=== PATIENT | female | born 1980 | race Hispanic/Latino ===

== ENCOUNTER 2017-06-02 12:23 | Emergency (ER) | payer SELFPAY | END 2017-06-02 14:33 | disposition home or self-care (01) | LOC: ERS 12:23 | DX: K03.81 Cracked tooth (principal); D64.9 Anemia, unspecified; F32.9 Major depressive disorder, single episode, unspecified; F41.9 Anxiety disorder, unspecified; F17.210 Nicotine dependence, cigarettes, uncomplicated; J45.909 Unspecified asthma, uncomplicated; Z71.6 Tobacco abuse counseling | CPT/HCPCS: 99406 ==

== ENCOUNTER 2019-08-21 00:05 | Emergency (ER) | payer SELFPAY ==
[2019-08-21] MEDS ORDERED: Acetaminophen 500 MG TAB ONE (00:22)
[2019-08-21] MEDS ORDERED: Ondansetron ODT 4 MG TAB ONE (00:22)
[2019-08-21 00:41] LABS: #Basophils 0.1 thou/uL (0.0-0.2); #Eosinphils 0.7 thou/uL (0.0-0.7); #Lymphocytes 4.5 thou/uL (1.20-3.40); #Monocytes 0.5 thou/uL (0.11-0.59); #Neutrophils 5.1 thou/uL (1.40-6.50); %Eosinophils 6.8 % (0.0-10.0); %Lymphocytes 40.7 % (21.0-51.0); %Monocytes 4.9 % (0.0-10.0); %Neutrophils 46.6 % (42.0-75.0); Hemoglobin 12.7 g/dL (12.0-16.0); Mean Corpuscular HGB CONC 35.8 g/dL (32.0-36.0); Mean Corpuscular Hemoglobin 34.8 pg (27.0-31.0); Mean Corpuscular Volume 97.3 fL (78.0-98.0); Mean Platelet Volume 7.1 fL (7.4-10.4); Platelet Count 349 thou/uL (130-400); RBC Distribution Width 11.4 % (11.5-14.5); Red Blood Cell (RBC) Count 3.64 mill/uL (4.20-5.40); White Blood Cell (WBC) Count 10.9 thou/uL (4.8-10.8)
[2019-08-21 01:02] LABS: ALT (SGPT) 22 U/L (8-55); AST (SGOT) 18 U/L (5-34); Albumin 4.1 g/dL (3.5-5.0); Alkaline Phosphatase 76 U/L (40-110); Anion Gap 10 mmol/L (10-20); BUN (Urea Nitrogen) 9 mg/dL (7.0-18.7); Bilirubin, Total 0.2 mg/dL (0.2-1.2); Calc. Creatinine Clearance 0 mL/min (70-130); Calcium 9.1 mg/dL (7.8-10.44); Carbon Dioxide 27 mmol/L (22-29); Chloride 105 mmol/L (98-107); Estimated GFR-MDRD 76; Globulin 3.6 g/dL (2.4-3.5); Glucose 127 mg/dL (70-105); Lipase 27 U/L (8-78); Potassium 3.5 mmol/L (3.5-5.1); Protein, Total 7.7 g/dL (6.0-8.3); Sodium 138 mmol/L (136-145)
[2019-08-21 01:12] LABS: Bilirubin Negative (Negative); Blood, Urine Negative (Negative); Clarity Clear (Clear); Glucose, Urine (Dipstick) Normal (Negative); Leukocyte Negative Leu/uL (Negative); Nitrite Negative (Negative); Pregnancy Test - Urine (BHCG) Negative (Negative); Pregu Control Background? CLEAR/WHITE (CLR/WHITE); Pregu Control Bar Appear? YES (CONTROL BAR); Protein, Urine (Dipstick) Negative (Neg-Trace); Specific Gravity 1.017 (1.002-1.036); Urobilinogen Normal mg/dL (Less than 2)
== END 2019-08-21 02:08 | disposition home or self-care (01) ==
LOC: ERS 00:05
DX: R10.13 Epigastric pain (principal); R10.12 Left upper quadrant pain; J45.909 Unspecified asthma, uncomplicated; F41.9 Anxiety disorder, unspecified; F32.9 Major depressive disorder, single episode, unspecified; F17.210 Nicotine dependence, cigarettes, uncomplicated; D64.9 Anemia, unspecified
CPT/HCPCS: 36415; 80053; 81003; 81025; 83690; 85025; 99284; Q0162

== ENCOUNTER 2019-12-14 20:11 | Emergency (ER) | payer SELFPAY ==
--- NOTE | 2019-12-14 20:47 | RAD ---
Exam: Right toe 3 views HISTORY: Pain and injury. FINDINGS: No fracture, cortical irregularity or periosteal reaction. IMPRESSION: No fracture.
== END 2019-12-14 21:01 | disposition home or self-care (01) ==
LOC: ERS 20:11
DX: S90.211A Contusion of right great toe with damage to nail, initial encounter (principal); D64.9 Anemia, unspecified; J45.909 Unspecified asthma, uncomplicated; F41.9 Anxiety disorder, unspecified; F17.210 Nicotine dependence, cigarettes, uncomplicated; W20.8XXA Other cause of strike by thrown, projected or falling object, initial encounter
CPT/HCPCS: 11740

== ENCOUNTER 2021-07-05 23:02 | Emergency (ER) | payer BC, SELFPAY ==
[2021-07-06] MEDS ORDERED: Dexamethasone 4 mg/ml Vial ONE (01:33)
== END 2021-07-06 01:40 | disposition home or self-care (01) ==
LOC: ERS 23:02
DX: J02.9 Acute pharyngitis, unspecified (principal); J04.0 Acute laryngitis; R09.81 Nasal congestion; D64.9 Anemia, unspecified; J45.909 Unspecified asthma, uncomplicated; Z87.891 Personal history of nicotine dependence
CPT/HCPCS: 87081; 87430; 99283; J1100